=== PATIENT | female | born 1995 | race Caucasian/White ===

== ENCOUNTER 2016-06-24 07:42 | Day surgery (SDC) | payer OTHER ==
[2016-06-24] MEDS ORDERED: Lidocaine Topical 2% 30 mL Jelly ONE (07:49)
== END 2016-06-24 23:59 | disposition home or self-care (01) ==
LOC: END 07:42
PROVIDERS: ATTEND Internal Medicine Gastroenterology
DX: K22.4 Dyskinesia of esophagus (principal); R13.10 Dysphagia, unspecified